=== PATIENT | male | born 1965 | race Caucasian/White ===

== ENCOUNTER 2016-09-17 14:16 | Emergency (ER) | payer OTHER ==
--- NOTE | 2016-09-17 17:34 | ED ORDER SUMMARY ---
..... Patient: KASANDRA SOUSA OrderSheet [facility] VisitID: [id number] [place] [address] 51y, M Registration Date/Time: 09/17/2016 ORDER SHEET Weight: 144.2 kg Allergies: No Known Drug Allergy GENERAL ORDERS: Wound Irrigation (17:39 09/17/2016 Juan Guerrier) (17:42 Anna Lynch.N.) Dress Wounds (17:39 09/17/2016 Juan Guerrier) (17:42 Anna Lynch.N.) MEDICATION ORDERS: Keflex PO 500 mg (NOW) (17:30 09/17/2016 Juan Guerrier) (17:40 Anna Lynch.N.) Bactrim DS PO (Tablet 800-160 mg) 1 tab (NOW) (17:31 09/17/2016 Juan Guerrier) (17:42 Anna Lynch.N.) IV FLUIDS: ORDER SHEET NOTES: [Electronically signed by Edson Rucker R.N. (00:04 09/18/2016)] [Electronically signed by Rip Madsen Dr. (22:45 09/24/2016)] [Electronically locked/signed by Edson Rucker R.N. (00:04 09/18/2016)]
--- NOTE | 2016-09-17 17:34 | ED CLINICAL REPORT ---
Clinical Report - Physicians/Mid Levels [facility] [address] [place] [address] 09/17/2016 14:19 Patient: KASANDRA SOUSA Arrived- By private vehicle. Historian- patient. HISTORY OF PRESENT ILLNESS Chief Complaint: (possible infected wound). This started past several days and is still present and worsening. It was gradual in onset and has been constant but is not gone now. It is described as painful. It has been located on the right lower extremity. No cause has been identified. No recent medication, insect bite or food exposure. Was not recently exposed to poison seble or poison oak. Similar symptoms previously: None. Recent medical care: The patient was seen recently by a health care provider. ( had laceration repair about a week ago [place] out [place] state. tripped and cut knee. has been going back to work but noticed drainage). REVIEW OF SYSTEMS No fever, cough, difficulty breathing or joint pain. All systems otherwise negative, except as recorded above. PAST HISTORY See nurses notes. Tetanus immunization status is up-to-date. SOCIAL HISTORY Smoker- current status unknown. No alcohol use or drug use. Is a local resident. PHYSICAL EXAM Appearance: Alert. Oriented X3. No acute distress. CVS: Normal heart rate and rhythm. Heart sounds normal. Respiratory: No respiratory distress. Breath sounds normal. Chest nontender. Abdomen: Nontender. No organomegaly. Skin: Skin rash present- extensive psoriatic lesions to the lower extremities bilaterally. They do not appear infectious. (there is a well healing wound to the anterior aspect of the right knee in a wedge shape pattern. The lateral stitch appears to have a serous and micro-purulent drainage from it. No area of erythema surrounding the wound. Rest of the wound is clean dry and intact. No crepitus. No other signs of infection. He is appropriately tender. Compartments are soft. Patient is neurovascularly intact distal to the wound.). PROGRESS AND PROCEDURES Course of Care: the patient is a 51-year-old male with past medical history significant for psoriasis presenting for reevaluation of right-sided wound infection. The patient reports that about a week ago he had fallen and injured his right knee. Patient was out of state and had the laceration repaired at a nearby emergency department. The patient reports that he had returned to [facility] and following their recommendations for wound care. The patient reports that there is been what he describes as purulent drainage coming from the medial or lateral aspect of the wound at one of the stitches. Patient reports no other symptoms Such as warmth, fever, or other systemic symptoms. The patient is at high risk for infection at this time. Wound was evaluated and found to have normality noted to the area. The stitches in the other areas were intact and were not draining. The wound could not be opened up as the skin had been healing appropriately. The suture was removed and there is a small area which tracked deeper. This one approximately half a centimeter deep. Small amount rhythm material was expressed from the wound with palpation. Wound was irrigated. No other abnormalities noted. Because of the patient's high risk of infection, antibiotics will be provided at this time. There is no noted area of cellulitis or systemic symptoms. No evidence of sepsis. Patient has a doctor here which she can follow up with in approximately one or 2 days. patient is to follow-up with his doctor for wound check. Described patient's risk for wound dehiscence and recommended patient continue with theknee brace that was provided as well as white activity as tolerated. I discussed the patient workup, diagnosis, home care, follow-up, and return precautions. All questions answered. The patient expressed understanding of these instructions and was agreeable to them. Disposition: Discharged. Condition: good. CLINICAL IMPRESSION 09/17/2016 15:23 BP: 144/85. HR: 81. RR: 16. O2 saturation: 96%. Temp: 98.9 F. Pain level now: 6/10. Blood pressure normal. Oxygen saturation normal. Single abscess (post laceration repair). INSTRUCTIONS Warnings: GENERAL WARNINGS: Return or contact your physician immediately if your condition worsens or changes unexpectedly, if not improving as expected, or if other problems arise. Specifically return if pain, vomiting, bleeding, breathing difficulty or fever. Your Current Medications: CONTINUE TAKING THE FOLLOWING MEDICATIONS: Furosemide Oral. MetFORMIN HCl Oral. Metoprolol Succinate ER Oral. Spironolactone Oral. Prescription Medications: Bactrim DS 800 mg / 160 mg: take 1 tablet orally every 12 hours for 10 days. No refill. Substitution is permissible. (Disp 20 tabs) Keflex 500 mg: take 1 capsule orally every 8 hours for 10 days. No refill. Substitution is permissible. Follow-up: Return to the emergency department as needed. Follow up with your doctor in three days. Reason for referral: recheck today's concerns. Summary of care provided to patient via paper. Screening today revealed the patient's blood pressure to be in the normal range. The patient should follow up with a primary care provider for blood pressure management. Understanding of the discharge instructions verbalized by patient. (Electronically signed by Rip Madsen Dr. 09/24/2016 22:45)
--- NOTE | 2016-09-17 17:34 | ED NURSING NOTES ---
Clinical Report - Nurses [place] [address] [place] [address] 09/17/2016 14:19 Patient: KASANDRA SOUSA TRIAGE Triage time 15:23 Sep 17 2016. Acuity: LEVEL 3. Chief Complaint: RIGHT LOWER EXTREMITY PAIN, SWELLING and REDNESS. Alert. FANG COMA SCORE: Bethalto Coma Scale: 15- eyes open spontaneously (4); best verbal response- oriented x 4 (5); best motor response- obeys commands (6). --15:35 Edson Rucker R.N. 15:23 09/17/16. BP: 144/85. HR: 81. RR: 16. O2 saturation: 96% on room air. Temp: 98.9 F. Pain level now: 10. Additional comments: R Knee. --15:35 Edson Rucker R.N. Weight: 144.2 kg. Height/Length: 74 inches Per Patient. BMI: 40.8. --15:31 Edson Rucker R.N. Medications Furosemide Oral. MetFORMIN HCl Oral. Metoprolol Succinate ER Oral. Spironolactone Oral. --15:28 Edson Rucker R.N. Allergies No Known Drug Allergy. --00:04 Edson Rucker R.N. History Arrived by private vehicle. Historian: patient. Accompanied by mother. Primary physician (Howie Fletcher, ). ( Infected repaired laceration to the (R) Knee. Pt states that knee happened in [place].). Injury occurred. This occurred (6 days ago). He has had swelling, redness and trouble walking. Treatment DIRECTOR OF CURRICULUM AND INSTRUCTION: None. PAST MEDICAL HX: Tetanus status: up-to-date. Has not received seasonal influenza immunization. SOCIAL HX: Heavy tobacco smoker (cigarette)- 1 pack per day. No alcohol use or drug use. No infectious disease exposure. SKIN INTEGRITY ASSESSMENT: Skin integrity risk assessment was performed. Risk factors identified include restricted mobility (infected laceration). ABUSE ASSESSMENT: No report of abuse. NUTRITIONAL RISK ASSESSMENT: The nutritional risk assessment revealed no deficiencies. FUNCTIONAL ASSESSMENT: Functional assessment: no impairments noted. LEARNING NEEDS ASSESSMENT: The learning needs assessment revealed no barriers. FALL RISK ASSESSMENT: Fall risk assessment completed. Risk factors identified include severe pain and patient impairment of mobility. --15:35 Edson Rucker R.N. PROBLEMS: Psoriasis. Hypertension. Diabetes Mellitus. --15:31 Edson Rucker R.N. ADDITIONAL SURGERIES: Ankle. Tonsillectomy. --15:31 Edson Rucker R.N. Interventions ID band on patient. To treatment room. --15:35 Edson Rucker R.N. PHYSICAL ASSESSMENT To room via wheelchair. GENERAL / NEURO / PSYCH: Oriented X 4. Alert. EXTREMITIES: Serous drainage on the extremities. Limited ROM present in the right knee. Neuro-vascular status intact to the extremity. Right knee: tenderness, swelling and erythema. SKIN: Wound present on the right knee. Skin is warm and dry. ( Heavy Psoriasis on (R) Calf. Sutured Laceration lateral (R) Knee). --16:54 Edson Rucker R.N. NURSING PROGRESS NOTES Reassurance given to the patient and patient's family. Patient identifiers checked. Call light placed in reach. Side rails up x 1. Bed placed in lowest position. Brakes of bed on. Patient ready for evaluation- chart flagged and ED physician notified. --16:55 Edson Rucker R.N. 17:15 09/17/16. Wound cleansed with sterile water and Betadine (by Dr. Wolf). --17:38 Edson Rucker R.N. 17:25. Applied sterile bulky dressing consisting of 4x4 gauze and telfa pad, following the application of antibiotic ointment (bacitracin). Secured with kerlix. --17:40 Edson Rucker R.N. 17:35 09/17/2016 Keflex (Cephalexin) PO 500 mg given. --17:40 Edson Rucker R.N. 17:37 09/17/2016 Bactrim DS (Sulfamethoxazole-TMP DS) PO Tablets 1 tab given. Allergies verified and confirmed 5 rights. --17:42 Edson Rucker R.N. DISPOSITION / DISCHARGE Departure time: 1745. --23:57 Chaim, Edson, R.N. <<STRICKEN ENTRY-- 23:57 09/17/16. BP: 162/72. HR: 80. RR: 18. O2 saturation: 100% on room air. Temp: 98.3 F (oral). Pain level now: 01/05. Additional comments: pain in (R) Knee. --23:59 Edson Rucker R.N. --END STRIKE>> Correction --00:00 Edson Rucker R.N. 17:40 09/17/16. BP: 162/72. HR: 80. RR: 18. O2 saturation: 100% on room air. Temp: 98.3 F (oral). Pain level now: 01/05. Additional comments: pain in (R) Knee. --00:02 Edson Rucker R.N. 17:45. No learning barriers present. Discharge instructions provided and reviewed with the patient and family. Reviewed medication(s) (prescription given to pt). Reviewed wound care instructions. Reviewed referral to family practice for followup. Patient and family verbalized understanding. Written instructions provided in Portuguese. The patient was discharged by the physician. He was discharged home and accompanied by parent. He left the Emergency Department in a wheelchair and via private vehicle. Family member driving. --00:03 Edson Rucker R.N. Locked/Released at 09/18/2016 0:04 by Edson Rucker R.N.
--- NOTE | 2016-09-17 17:34 | ED ORDER SUMMARY ---
..... Patient: KASANDRA SOUSA OrderSheet [facility] VisitID: [id number] [place] [address] 51y, M Registration Date/Time: 09/17/2016 ORDER SHEET Weight: 144.2 kg Allergies: No Known Drug Allergy GENERAL ORDERS: Wound Irrigation (17:39 09/17/2016 Juan Guerrier) (17:42 Anna Lynch.N.) Dress Wounds (17:39 09/17/2016 Juan Guerrier) (17:42 Anna Lynch.N.) MEDICATION ORDERS: Keflex PO 500 mg (NOW) (17:30 09/17/2016 Juan Guerrier) (17:40 Anna Lynch.N.) Bactrim DS PO (Tablet 800-160 mg) 1 tab (NOW) (17:31 09/17/2016 Juan Guerrier) (17:42 Anna Lynch.N.) IV FLUIDS: ORDER SHEET NOTES: [Electronically signed by Edson Rucker R.N. (00:04 09/18/2016)] [Electronically signed by Rip Madsen Dr. (22:45 09/24/2016)] [Electronically locked/signed by Edson Rucker R.N. (00:04 09/18/2016)]
--- NOTE | 2016-09-24 22:45 | ED MAR SUMMARY ---
..... Medication Administration Record [facility] [address] [place] [address] Patient: KASANDRA SOUSA Visit ID: [id number] 51y, M Weight: 144.2 kg Height/Length: 74 in BMI: 40.8 ALLERGIES: No Known Drug Allergy Given 17:35 09/17/2016 Edson Rucker, R.N. Medication Administered: KEFLEX [PO] (CEPHALEXIN), Dose: 500 mg PO. Medication Ordered: Keflex PO 500 mg (NOW). Given 17:37 09/17/2016 Edson Rucker, R.N. Medication Administered: BACTRIM DS [PO] (SULFAMETHOXAZOLE-TMP DS), Dose: 1 tab Tablets PO. Medication Ordered: Bactrim DS PO (Tablet 800-160 mg) 1 tab (NOW).
--- NOTE | 2016-09-24 22:45 | ED MED RECONCILIATION SUMMARY ---
Patient: KASANDRA SOUSA Medication Reconciliation Report [facility] VisitID: [id number] [address] [place] [address] 51y, M Registration Date/Time: 09/17/2016 Weight: 144.2 kg Height/Length: 74 in. BMI: 40.8 ALLERGIES: No Known Drug Allergy The patient's Home Medications are listed below: CONTINUE TAKING THE FOLLOWING MEDICATIONS: Furosemide Oral MetFORMIN HCl Oral Metoprolol Succinate ER Oral Spironolactone Oral The source(s) of the original Home Medication information: Not obtained. The following Medications were given to the patient in the Emergency Department: Keflex [PO] PO 500 mg, administered: 09/17/2016 5:35:00 PM Bactrim DS [PO] PO 1 tab, administered: 09/17/2016 5:37:00 PM The following Medications were prescribed to the patient: Bactrim DS 800 mg / 160 mg: take 1 tablet orally every 12 hours for 10 days. No refill. Substitution is permissible.(Disp 20 tabs) -- Rip Madsen Dr. Keflex 500 mg: take 1 capsule orally every 8 hours for 10 days. No refill. Substitution is permissible. -- Rip Madsen Dr.
--- NOTE | 2016-09-24 22:45 | ED DISCHARGE INSTRUCTIONS ---
Patient: KASANDRA SOUSA General Instructions [facility] VisitID: [id number] [place] [address] 51y, M Registration Date/Time: 09/17/2016 09/17/2016 15:23 BP: 144/85. HR: 81. RR: 16. O2 saturation: 96%. Temp: 98.9 F. Pain level now: 6/10. Blood pressure normal. Oxygen saturation normal. Single abscess (post laceration repair). INSTRUCTIONS Warnings: GENERAL WARNINGS: Return or contact your physician immediately if your condition worsens or changes unexpectedly, if not improving as expected, or if other problems arise. Specifically return if pain, vomiting, bleeding, breathing difficulty or fever. Your Current Medications: CONTINUE TAKING THE FOLLOWING MEDICATIONS: Furosemide Oral. MetFORMIN HCl Oral. Metoprolol Succinate ER Oral. Spironolactone Oral. Prescription Medications: Bactrim DS 800 mg / 160 mg: take 1 tablet orally every 12 hours for 10 days. No refill. Substitution is permissible. (Disp 20 tabs) Keflex 500 mg: take 1 capsule orally every 8 hours for 10 days. No refill. Substitution is permissible. Follow-up: Return to the emergency department as needed. Follow up with your doctor in three days. Reason for referral: recheck today's concerns. Summary of care provided to patient via paper. Screening today revealed the patient's blood pressure to be in the normal range. The patient should follow up with a primary care provider for blood pressure management. Understanding of the discharge instructions verbalized by patient. ADDITIONAL INFORMATION Abscess (Antibiotic Treatment Only) An abscess (sometimes called a boil) occurs when bacteria get trapped under the skin and begin to grow. Pus forms inside the abscess as the body responds to the bacteria. An abscess can occur with an insect bite, ingrown hair, blocked oil gland, pimple, cyst, or puncture wound. In the early stages, redness and tenderness are the only symptoms. Sometimes, this stage can be treated with antibiotics alone. If the abscess does not respond to antibiotic treatment, it will need to be drained with a small cut, under local anesthesia. Home care The following will help you care for your abscess at home: Soak the wound in hot water or apply hot packs (small towel soaked in hot water) to the area for 20 minutes at a time. Do this three to four times a day. Apply antibiotic cream or ointment onto the skin 3-4 times a day, unless something else was prescribed. Some ointments include an antibiotic plus a local pain reliever. If your doctor prescribed antibiotics, do not stop taking this medication until you have finished the prescribed course or the doctor tells you to stop. You may use an [id number] pain medication to control pain, unless another pain medicine was prescribed. If you have chronic liver or kidney disease or ever had a stomach ulcer or GI bleeding, talk with your doctor before using these any of these. Follow-up care Follow up with your health care provider as advised by our staff. Look at your wound each day for the signs of worsening infection listed below. When to seek medical care Get prompt medical attention if any of the following occur: An increase in redness or swelling Red streaks in the skin leading away from the abscess An increase in local pain or swelling Fever of 100.4F (38C) or higher, or as directed by your health care provider Pus or fluid coming from the abscess Sulfamethoxazole, Trimethoprim Oral tablet What is this medicine? SULFAMETHOXAZOLE; TRIMETHOPRIM or SMX-TMP (suhl fuh meth OK cristian zohl; trye METH oh prim) is a combination of a sulfonamide antibiotic and a second antibiotic, trimethoprim. It is used to treat or prevent certain kinds of bacterial infections. It will not work for colds, flu, or other viral infections. How should I use this medicine? Take this medicine by mouth with a full glass of water. Follow the directions on the prescription label. Take your medicine at regular intervals. Do not take it more often than directed. Do not skip doses or stop your medicine early. Talk to your highway patrol officer regarding the use of this medicine in children. Special care may be needed. This medicine has been used in children as young as 2 months of age. What side effects may I notice from receiving this medicine? Side effects that you should report to your doctor or health md do resident urgent care as soon as possible: allergic reactions like skin rash or hives, swelling of the face, lips, or tongue breathing problems fever or chills, sore throat irregular heartbeat, chest pain joint or muscle pain pain or difficulty passing urine red pinpoint spots on skin redness, blistering, peeling or loosening of the skin, including inside the mouth unusual bleeding or bruising unusually weak or tired yellowing of the eyes or skin Side effects that usually do not require medical attention (report to your doctor or health md do resident urgent care if they continue or are bothersome): diarrhea dizziness headache loss of appetite nausea, vomiting nervousness What may interact with this medicine? Do not take this medicine with any of the following medications: aminobenzoate potassium dofetilide metronidazole This medicine may also interact with the following medications: RACHEL inhibitors like benazepril, enalapril, lisinopril, and ramipril cyclosporine digoxin diuretics indomethacin medicines for diabetes methenamine methotrexate phenytoin potassium supplements pyrimethamine sulfinpyrazone tricyclic antidepressants warfarin What if I miss a dose? If you miss a dose, take it as soon as you can. If it is almost time for your next dose, take only that dose. Do not take double or extra doses. Where should I keep my medicine? Keep out of the reach of children. Store at room temperature between 20 to 25 degrees C (68 to 77 degrees F). Protect from light. Throw away any unused medicine after the expiration date. What should I tell my health care provider before I take this medicine? They need to know if you have any of these conditions: anemia asthma being treated with anticonvulsants if you frequently drink alcohol containing drinks kidney disease liver disease low level of folic acid or [id number] dehydrogenase poor nutrition or malabsorption porphyria severe allergies thyroid disorder an unusual or allergic reaction to sulfamethoxazole, trimethoprim, sulfa drugs, other medicines, foods, dyes, or preservatives or trying to get breast-feeding What should I watch for while using this medicine? Tell your doctor or health md do resident urgent care if your symptoms do not improve. Drink several glasses of water a day to reduce the risk of kidney problems. Do not treat diarrhea with over the counter products. Contact your doctor if you have diarrhea that lasts more than 2 days or if it is severe and watery. This medicine can make you more sensitive to the sun. Keep out of the sun. If you cannot avoid being in the sun, wear protective clothing and use a sunscreen. Do not use sun lamps or tanning beds/booths. Cephalexin Monohydrate Oral tablet What is this medicine? CEPHALEXIN (sef a LAILA in) is a cephalosporin antibiotic. It is used to treat certain kinds of bacterial infections It will not work for colds, flu, or other viral infections. How should I use this medicine? Take this medicine by mouth with a full glass of water. Follow the directions on the prescription label. This medicine can be taken with or without food. Take your medicine at regular intervals. Do not take your medicine more often than directed. Take all of your medicine as directed even if you think you are better. Do not skip doses or stop your medicine early. Talk to your highway patrol officer regarding the use of this medicine in children. While this drug may be prescribed for selected conditions, precautions do apply. What side effects may I notice from receiving this medicine? Side effects that you should report to your doctor or health md do resident urgent care as soon as possible: allergic reactions like skin rash, itching or hives, swelling of the face, lips, or tongue breathing problems pain or trouble passing urine redness, blistering, peeling or loosening of the skin, including inside the mouth severe or watery diarrhea unusually weak or tired yellowing of the eyes, skin Side effects that usually do not require medical attention (report to your doctor or health md do resident urgent care if they continue or are bothersome): gas or heartburn genital or anal irritation headache joint or muscle pain nausea, vomiting What may interact with this medicine? probenecid some other antibiotics What if I miss a dose? If you miss a dose, take it as soon as you can. If it is almost time for your next dose, take only that dose. Do not take double or extra doses. There should be at least 4 to 6 hours between doses. Where should I keep my medicine? Keep out of the reach of children. Store at room temperature between 59 and 86 degrees F (15 and 30 degrees C). Throw away any unused medicine after the expiration date. What should I tell my health care provider before I take this medicine? They need to know if you have any of these conditions: kidney disease stomach or intestine problems, especially colitis an unusual or allergic reaction to cephalexin, other cephalosporins, penicillins, other antibiotics, medicines, foods, dyes or preservatives or trying to get breast-feeding What should I watch for while using this medicine? Tell your doctor or health md do resident urgent care if your symptoms do not begin to improve in a few days. Do not treat diarrhea with over the counter products. Contact your doctor if you have diarrhea that lasts more than 2 days or if it is severe and watery. If you have diabetes, you may get a false-positive result for sugar in your urine. Check with your doctor or health md do resident urgent care. You have been given the following additional information: Abscess, Antiobiotic Treatment Only Sulfamethoxazole, Trimethoprim Oral tablet Cephalexin Monohydrate Oral tablet (Electronically signed by Rip Madsen Dr. 09/24/2016 22:45)
--- NOTE | 2016-09-24 22:45 | ED DISCHARGE INSTRUCTIONS ---
Patient: KASANDRA SOUSA General Instructions [facility]ly [facility] VisitID: [id number] [place] [address] 51y, M Registration Date/Time: 09/17/2016 09/17/2016 15:23 BP: 144/85. HR: 81. RR: 16. O2 saturation: 96%. Temp: 98.9 F. Pain level now: 6/10. Blood pressure normal. Oxygen saturation normal. Single abscess (post laceration repair). INSTRUCTIONS Warnings: GENERAL WARNINGS: Return or contact your physician immediately if your condition worsens or changes unexpectedly, if not improving as expected, or if other problems arise. Specifically return if pain, vomiting, bleeding, breathing difficulty or fever. Your Current Medications: CONTINUE TAKING THE FOLLOWING MEDICATIONS: Furosemide Oral. MetFORMIN HCl Oral. Metoprolol Succinate ER Oral. Spironolactone Oral. Prescription Medications: Bactrim DS 800 mg / 160 mg: take 1 tablet orally every 12 hours for 10 days. No refill. Substitution is permissible. (Disp 20 tabs) Keflex 500 mg: take 1 capsule orally every 8 hours for 10 days. No refill. Substitution is permissible. Follow-up: Return to the emergency department as needed. Follow up with your doctor in three days. Reason for referral: recheck today's concerns. Summary of care provided to patient via paper. Screening today revealed the patient's blood pressure to be in the normal range. The patient should follow up with a primary care provider for blood pressure management. Understanding of the discharge instructions verbalized by patient. ADDITIONAL INFORMATION Abscess (Antibiotic Treatment Only) An abscess (sometimes called a boil) occurs when bacteria get trapped under the skin and begin to grow. Pus forms inside the abscess as the body responds to the bacteria. An abscess can occur with an insect bite, ingrown hair, blocked oil gland, pimple, cyst, or puncture wound. In the early stages, redness and tenderness are the only symptoms. Sometimes, this stage can be treated with antibiotics alone. If the abscess does not respond to antibiotic treatment, it will need to be drained with a small cut, under local anesthesia. Home care The following will help you care for your abscess at home: Soak the wound in hot water or apply hot packs (small towel soaked in hot water) to the area for 20 minutes at a time. Do this three to four times a day. Apply antibiotic cream or ointment onto the skin 3-4 times a day, unless something else was prescribed. Some ointments include an antibiotic plus a local pain reliever. If your doctor prescribed antibiotics, do not stop taking this medication until you have finished the prescribed course or the doctor tells you to stop. You may use an [id number] pain medication to control pain, unless another pain medicine was prescribed. If you have chronic liver or kidney disease or ever had a stomach ulcer or GI bleeding, talk with your doctor before using these any of these. Follow-up care Follow up with your health care provider as advised by our staff. Look at your wound each day for the signs of worsening infection listed below. When to seek medical care Get prompt medical attention if any of the following occur: An increase in redness or swelling Red streaks in the skin leading away from the abscess An increase in local pain or swelling Fever of 100.4F (38C) or higher, or as directed by your health care provider Pus or fluid coming from the abscess Sulfamethoxazole, Trimethoprim Oral tablet What is this medicine? SULFAMETHOXAZOLE; TRIMETHOPRIM or SMX-TMP (suhl fuh meth OK cristian zohl; trye METH oh prim) is a combination of a sulfonamide antibiotic and a second antibiotic, trimethoprim. It is used to treat or prevent certain kinds of bacterial infections. It will not work for colds, flu, or other viral infections. How should I use this medicine? Take this medicine by mouth with a full glass of water. Follow the directions on the prescription label. Take your medicine at regular intervals. Do not take it more often than directed. Do not skip doses or stop your medicine early. Talk to your plumber cub regarding the use of this medicine in children. Special care may be needed. This medicine has been used in children as young as 2 months of age. What side effects may I notice from receiving this medicine? Side effects that you should report to your doctor or health critical care cns as soon as possible: allergic reactions like skin rash or hives, swelling of the face, lips, or tongue breathing problems fever or chills, sore throat irregular heartbeat, chest pain joint or muscle pain pain or difficulty passing urine red pinpoint spots on skin redness, blistering, peeling or loosening of the skin, including inside the mouth unusual bleeding or bruising unusually weak or tired yellowing of the eyes or skin Side effects that usually do not require medical attention (report to your doctor or health critical care cns if they continue or are bothersome): diarrhea dizziness headache loss of appetite nausea, vomiting nervousness What may interact with this medicine? Do not take this medicine with any of the following medications: aminobenzoate potassium dofetilide metronidazole This medicine may also interact with the following medications: RACHEL inhibitors like benazepril, enalapril, lisinopril, and ramipril cyclosporine digoxin diuretics indomethacin medicines for diabetes methenamine methotrexate phenytoin potassium supplements pyrimethamine sulfinpyrazone tricyclic antidepressants warfarin What if I miss a dose? If you miss a dose, take it as soon as you can. If it is almost time for your next dose, take only that dose. Do not take double or extra doses. Where should I keep my medicine? Keep out of the reach of children. Store at room temperature between 20 to 25 degrees C (68 to 77 degrees F). Protect from light. Throw away any unused medicine after the expiration date. What should I tell my health care provider before I take this medicine? They need to know if you have any of these conditions: anemia asthma being treated with anticonvulsants if you frequently drink alcohol containing drinks kidney disease liver disease low level of folic acid or [id number] dehydrogenase poor nutrition or malabsorption porphyria severe allergies thyroid disorder an unusual or allergic reaction to sulfamethoxazole, trimethoprim, sulfa drugs, other medicines, foods, dyes, or preservatives or trying to get breast-feeding What should I watch for while using this medicine? Tell your doctor or health critical care cns if your symptoms do not improve. Drink several glasses of water a day to reduce the risk of kidney problems. Do not treat diarrhea with over the counter products. Contact your doctor if you have diarrhea that lasts more than 2 days or if it is severe and watery. This medicine can make you more sensitive to the sun. Keep out of the sun. If you cannot avoid being in the sun, wear protective clothing and use a sunscreen. Do not use sun lamps or tanning beds/booths. Cephalexin Monohydrate Oral tablet What is this medicine? CEPHALEXIN (sef a LAILA in) is a cephalosporin antibiotic. It is used to treat certain kinds of bacterial infections It will not work for colds, flu, or other viral infections. How should I use this medicine? Take this medicine by mouth with a full glass of water. Follow the directions on the prescription label. This medicine can be taken with or without food. Take your medicine at regular intervals. Do not take your medicine more often than directed. Take all of your medicine as directed even if you think you are better. Do not skip doses or stop your medicine early. Talk to your plumber cub regarding the use of this medicine in children. While this drug may be prescribed for selected conditions, precautions do apply. What side effects may I notice from receiving this medicine? Side effects that you should report to your doctor or health critical care cns as soon as possible: allergic reactions like skin rash, itching or hives, swelling of the face, lips, or tongue breathing problems pain or trouble passing urine redness, blistering, peeling or loosening of the skin, including inside the mouth severe or watery diarrhea unusually weak or tired yellowing of the eyes, skin Side effects that usually do not require medical attention (report to your doctor or health critical care cns if they continue or are bothersome): gas or heartburn genital or anal irritation headache joint or muscle pain nausea, vomiting What may interact with this medicine? probenecid some other antibiotics What if I miss a dose? If you miss a dose, take it as soon as you can. If it is almost time for your next dose, take only that dose. Do not take double or extra doses. There should be at least 4 to 6 hours between doses. Where should I keep my medicine? Keep out of the reach of children. Store at room temperature between 59 and 86 degrees F (15 and 30 degrees C). Throw away any unused medicine after the expiration date. What should I tell my health care provider before I take this medicine? They need to know if you have any of these conditions: kidney disease stomach or intestine problems, especially colitis an unusual or allergic reaction to cephalexin, other cephalosporins, penicillins, other antibiotics, medicines, foods, dyes or preservatives or trying to get breast-feeding What should I watch for while using this medicine? Tell your doctor or health critical care cns if your symptoms do not begin to improve in a few days. Do not treat diarrhea with over the counter products. Contact your doctor if you have diarrhea that lasts more than 2 days or if it is severe and watery. If you have diabetes, you may get a false-positive result for sugar in your urine. Check with your doctor or health critical care cns. You have been given the following additional information: Abscess, Antiobiotic Treatment Only Sulfamethoxazole, Trimethoprim Oral tablet Cephalexin Monohydrate Oral tablet (Electronically signed by Rip Madsen Dr. 09/24/2016 22:45)
--- NOTE | 2016-09-24 22:45 | ED MED RECONCILIATION SUMMARY ---
Patient: KASANDRA SOUSA Medication Reconciliation Report [facility] VisitID: [id number] [address] [place] [address] 51y, M Registration Date/Time: 09/17/2016 Weight: 144.2 kg Height/Length: 74 in. BMI: 40.8 ALLERGIES: No Known Drug Allergy The patient's Home Medications are listed below: CONTINUE TAKING THE FOLLOWING MEDICATIONS: Furosemide Oral MetFORMIN HCl Oral Metoprolol Succinate ER Oral Spironolactone Oral The source(s) of the original Home Medication information: Not obtained. The following Medications were given to the patient in the Emergency Department: Keflex [PO] PO 500 mg, administered: 09/17/2016 5:35:00 PM Bactrim DS [PO] PO 1 tab, administered: 09/17/2016 5:37:00 PM The following Medications were prescribed to the patient: Bactrim DS 800 mg / 160 mg: take 1 tablet orally every 12 hours for 10 days. No refill. Substitution is permissible.(Disp 20 tabs) -- Rip Madsen Dr. Keflex 500 mg: take 1 capsule orally every 8 hours for 10 days. No refill. Substitution is permissible. -- Rip Madsen Dr.
--- NOTE | 2016-09-24 22:45 | ED MAR SUMMARY ---
..... Medication Administration Record [facility] [address] [place] [address] Patient: KASANDRA SOUSA Visit ID: [id number] 51y, M Weight: 144.2 kg Height/Length: 74 in BMI: 40.8 ALLERGIES: No Known Drug Allergy Given 17:35 09/17/2016 Edson Rucker, R.N. Medication Administered: KEFLEX [PO] (CEPHALEXIN), Dose: 500 mg PO. Medication Ordered: Keflex PO 500 mg (NOW). Given 17:37 09/17/2016 Edson Rucker, R.N. Medication Administered: BACTRIM DS [PO] (SULFAMETHOXAZOLE-TMP DS), Dose: 1 tab Tablets PO. Medication Ordered: Bactrim DS PO (Tablet 800-160 mg) 1 tab (NOW).
== END 2016-09-17 17:45 | disposition home or self-care (01) ==
LOC: ED SRH 14:16
DX: L02.415 Cutaneous abscess of right lower limb (principal); W19.XXXD Unspecified fall, subsequent encounter; I10 Essential (primary) hypertension; E11.9 Type 2 diabetes mellitus without complications; Y93.9 Activity, unspecified; Z79.84 Long term (current) use of oral hypoglycemic drugs; Y92.9 Unspecified place or not applicable